=== PATIENT | female | born 1940 | race Caucasian/White ===

== ENCOUNTER → 2023-10-10 08:26 | Outpatient (REF) | payer OTHER, SELFPAY ==
[2023-10-10 10:13] LABS: % Basophils 0.6 % (0-2); % Eosinophils 16.7 % (0-6); % Immature Granulocytes 0.4 % (0-0.5); % Lymphocytes 17.7 % (20.5-51.1); % Monocytes 7.1 % (1.7-9.3); % Neutrophils 57.5 % (42.2-75.2); Absolute Eosinophils 1.2 10^3/uL (0-0.7); Absolute Lymphocytes 1.2 10^3/uL (1.2-3.4); Absolute Monocytes 0.5 10^3/uL (0.1-0.6); Hematocrit 33.6 % (37.0-47.0); Mean Corp Hgb Conc. 29.8 g/dL (33.0-37.0); Mean Corpuscular Hgb 23.9 pg (27.0-31.0); Mean Corpuscular Volume 80.2 fL (81.0-99.0); Mean Platelet Volume 10.3 fL (7.4-10.4); Nucleated Red Blood Cells % 0 %; Platelet Count 275 10^3/uL (130-400); Red Blood Cell Count 4.19 10^6/uL (4.20-5.40); Red Cell Dist. Width 18.1 % (11.5-14.5)
== END ==
LOC: REG 08:26
PROVIDERS: ATTENDING PHYSICIAN Internal Medicine
DX: J98.4 Other disorders of lung (principal)
CPT/HCPCS: 36415; 71046; 85025

== ENCOUNTER → 2023-11-10 12:15 | Outpatient (REF) | payer OTHER, SELFPAY ==
[2023-11-10 10:50] LABS: % Basophils 0.5 % (0-2); % Eosinophils 12.7 % (0-6); % Immature Granulocytes 0.2 % (0-0.5); % Lymphocytes 19.9 % (20.5-51.1); % Monocytes 8.3 % (1.7-9.3); % Neutrophils 58.4 % (42.2-75.2); Absolute Eosinophils 0.8 10^3/uL (0-0.7); Absolute Lymphocytes 1.3 10^3/uL (1.2-3.4); Absolute Monocytes 0.5 10^3/uL (0.1-0.6); Absolute Neutrophils 3.7 10^3/uL (1.4-6.5); Hemoglobin 10.5 g/dL (12.0-16.0); Mean Corp Hgb Conc. 30.9 g/dL (33.0-37.0); Mean Corpuscular Hgb 24.5 pg (27.0-31.0); Mean Corpuscular Volume 79.3 fL (81.0-99.0); Mean Platelet Volume 10.2 fL (7.4-10.4); Nucleated Red Blood Cells % 0 %; Platelet Count 243 10^3/uL (130-400); Red Blood Cell Count 4.29 10^6/uL (4.20-5.40); White Blood Cell Count 6.3 10^3/uL (4.8-10.8)
== END ==
LOC: OIDL 12:15
PROVIDERS: ATTENDING PHYSICIAN Internal Medicine Hematology & Oncology
DX: D50.0 Iron deficiency anemia secondary to blood loss (chronic) (principal)
CPT/HCPCS: 85025

== ENCOUNTER → 2023-12-04 13:19 | Outpatient (REF) | payer OTHER, SELFPAY ==
[2023-12-04 15:59] LABS: % Basophils 0.7 % (0-2); % Eosinophils 5.3 % (0-6); % Immature Granulocytes 0.3 % (0-0.5); % Lymphocytes 17.6 % (20.5-51.1); % Monocytes 9.1 % (1.7-9.3); Absolute Basophils 0.1 10^3/uL (0-0.2); Absolute Eosinophils 0.4 10^3/uL (0-0.7); Absolute Lymphocytes 1.4 10^3/uL (1.2-3.4); Absolute Monocytes 0.7 10^3/uL (0.1-0.6); Absolute Neutrophils 5.2 10^3/uL (1.4-6.5); Hematocrit 39.3 % (37.0-47.0); Hemoglobin 12.7 g/dL (12.0-16.0); Mean Corp Hgb Conc. 32.3 g/dL (33.0-37.0); Mean Corpuscular Hgb 26.8 pg (27.0-31.0); Mean Corpuscular Volume 82.9 fL (81.0-99.0); Mean Platelet Volume 10.9 fL (7.4-10.4); Nucleated Red Blood Cells % 0 %; Platelet Count 248 10^3/uL (130-400); Red Blood Cell Count 4.74 10^6/uL (4.20-5.40); Red Cell Dist. Width 23.9 % (11.5-14.5); White Blood Cell Count 7.7 10^3/uL (4.8-10.8)
[2023-12-04 16:03] LABS: Iron 80 ug/dl (37-170)
[2023-12-04 16:14] LABS: Percent Saturation 29 % (20-50); Total Iron Binding Capacity 270 ug/dl (265-497)
[2023-12-04 17:12] LABS: Folate 15.3 ng/ml (2.76-20); Vitamin B12 447 pg/ml (239-931)
[2023-12-04 17:22] LABS: Anisocytosis 1+; Normal RBC Morphology No
[2023-12-04 17:23] LABS: Macrocytosis 1+; Stomatocytes Slight
== END ==
LOC: HWLAB 13:19
PROVIDERS: ATTENDING PHYSICIAN Internal Medicine Hematology & Oncology; FAMILY PHYSICIAN Nurse Practitioner Adult Health
DX: D50.0 Iron deficiency anemia secondary to blood loss (chronic) (principal)
CPT/HCPCS: 36415; 82607; 82728; 82746; 83540; 83550; 85025

== ENCOUNTER 2023-12-11 09:00 | Outpatient (RCR) | payer OTHER, SELFPAY | END 2023-12-11 23:59 | disposition home or self-care (01) | LOC: PURB 09:00 | PROVIDERS: ATTENDING PHYSICIAN Internal Medicine; FAMILY PHYSICIAN Nurse Practitioner Adult Health | DX: J98.4 Other disorders of lung (principal) | CPT/HCPCS: G0237 ==

== ENCOUNTER 2024-01-15 10:45 | Outpatient (RCR) | payer OTHER, SELFPAY | END 2024-01-28 09:09 | disposition home or self-care (01) | LOC: PURB 10:45 | PROVIDERS: ATTENDING PHYSICIAN Internal Medicine; FAMILY PHYSICIAN Nurse Practitioner Adult Health | DX: J98.4 Other disorders of lung (principal) | CPT/HCPCS: G0239 ==

== ENCOUNTER 2024-01-17 21:08 | Observation (INO) | payer OTHER, SELFPAY ==
[2024-01-17 19:59] VITALS: BP 125/64
[2024-01-17 20:03] LABS: Glucose - Point of Care 122 mg/dl (70-99)
[2024-01-17 20:09] VITALS: BP 157/71
[2024-01-17 20:10] VITALS: BMI 29.2
--- NOTE | 2024-01-17 20:14 | ED.CVA ---
History of Present Illness
General
Chief Complaint: CVA/TIA Symptoms
Source: patient and spouse
Exam Limitations: none
Time Seen by Provider: 01/17/24 20:03
Nursing documentation reviewed up to this point in time: agreed with
Onset of Stroke Symptoms
Onset of symptoms known: Yes
Date of onset of symptoms: 01/17/24
Time of onset of symptoms: 19:00
History of Present Illness
History of Present Illness:
Patient with history of CAD, on 81 mg aspirin daily, presents to ED secondary to sudden onset of slurred speech and difficulty finding words, while speaking with her daughter around 7 PM. Denies headache. Denies dizziness. Denies blurred vision.
Denies loss of sensation or weakness. Denies difficulty with swallowing. Denies difficulty with ambulation. Denies previous history of similar symptoms. Denies recent illness. Denies recent change in medications or diet.
Past History
Past History
ED Past Medical History: Asthma, CAD, CHF, HTN, Hypercholesterolemia, Hypothyroidism and Other (Pleural effusion)
ED Past Surgical History: Orthopedic and Other (Left lung lobectomy)
Review of Systems
Review of Systems
Allergies reviewed?: Yes
All Other Systems: ROS reviewed and negative except as documented in HPI and ROS
Constitutional: Reports no symptoms
Respiratory: Reports no symptoms
Cardiac: Reports no symptoms
ABD/GI: Reports no symptoms
Musculoskeletal: Reports no symptoms
Skin: Reports no symptoms
Neurological: Reports other (Slurred speech, word finding difficulty)
Phy Exam
Physical Exam
Physical Exam:
Physical Exam
General: no apparent distress, not acutely ill. afebrile
Head: nc/at. eomi
Neck: supple. no meningeal signs.
Heart: s1/s2 regular rate and rhythm, no murmur. equal radial pulses.
Lungs: no acute respiratory distress. clear bilaterally
Abdomen: normal bowel sounds. not tender.
Neuro: alert and oriented. no focal sensory/motor deficit. normal speech.
Skin: no rash
Psychiatric: well kept. interactive and cooperative
Extremities: no edema. no calf tenderness.
Course
Orders/Labs/Results
Orders:
Orders
01/17/24 20:05
Electrocardiogram (*1) Urgent
Reason for Study: Other
Other Reason for Exam: Possible Stroke
Cardiac Monitoring- Treatment ONCE
EKG- Treatment ONCE
IV Insert/Care/Rem.- Treatment PRN
Vital Signs As Directed
Frequency: Other
Weight As Directed
Frequency: Once
Comment: ZERO STRETCHER SCALE FOR ACCURATE WEIGHT
O2 Therapy [RESP] Urgent
Titrate/Wean O2 to maintain O2 sat greater than (%): 93
Special Instructions: MAINTAIN CONTINUOUS O2 SATS > OR = 93%
01/17/24 20:09
CT Head W/o Cont STROKE ALERT Urgent
Comment:
Reason For Exam: slurred speech w expressive aphasia
01/17/24 20:11
Complete Blood Count/With Diff Urgent
Comprehensive Metabolic Panel Urgent
PTT Urgent
Prothrombin Time Urgent
Troponin I Urgent
01/17/24 20:36
Aspirin Chewable [Low Strength Aspirin] 243 mg PO NOW STA
Clopidogrel Bisulfate [Plavix] 300 mg PO NOW STA
01/17/24 20:[address] Non Medication Order As Directed
Physician Order: please complete med rec. thanks
Above order entered?: Yes
01/17/24 21:00
Admit/Transfer Patient As Directed
Co-Sign Provider:
Level of Care: Observation services
Assign to:: Telemetry
Physician / Group: stalin
Diagnosis: CVA
Reason for Telemetry: CVA/TIA
Date to Stop Telemetry: 01/20/24
Time to Stop Telemetry: 11:00
0.9% Sodium Chloride 500 ml [Nss] 500 ml IV 999 mls/hr
PRN Pain Medication Management As Directed
May give lesser potent ordered pain med per pt: Yes
preference::
Protocol:: Medication orders for pain may be administered in a
manner that supports deferring to patient preference
when the pt is:
- Requesting an ordered lesser potent pain medication.
Least to most potent pain medications are defined
as: acetaminophen < NSAID < tramadol < opioids
(morphine, oxycodone, hydromorphone).
- Requesting a lesser dose of the same medication IF
ORDERED.
- Requesting a less intrusive route of administration
if both routes are prescribed by the provider (PO <
IV).
01/17/24 21:01
Code Status As Directed
Resuscitation Status: Do not resuscitate
Reached after discussion with pt or family/Healthcare POA: Yes
DNR Bracelet Application ONCE
01/17/24 21:49
Acetaminophen [Tylenol/Feverall] 650 mg RECTAL Q4HPRN PRN
Acetaminophen [Tylenol] 650 mg PO Q4HPRN PRN
01/17/24 21:49
Case Management Consult ONCE
Case Management Consult: Discharge Planning
Comment: stroke/tia
DIETARY CONSULT Routine
Reason for Consult: stroke/TIA
NEUROLOGY CONSULT Urgent
Consulting Provider: Steph Cobb
Was physician already notified: Yes
Blanket Winder Operator Urgent
MA [place] Wo Routine
Comment:
Reason For Exam: stroke/TIA
Recent pill cam endoscopy?: No
MA Neck With Contrast Routine
Comment:
Reason For Exam: stroke/TIA
Recent pill cam endoscopy?: No
MR Brain Without Contrast Routine
Comment:
Reason For Exam: stroke/TIA
Recent pill cam endoscopy?: No
Activity As Directed
Activity Level: As Tolerated
NIH Stroke Scale As Directed
Directions: Per protocol
Comment: every shift and with any change in condition or mental status
Neurological Checks As Directed
Frequency: q4h
Additional Instructions:: q4h x 24h upon admission to the floor, then qshift & with any change in condition
and mental status
Patient Education As Directed
Type: Stroke education packet
Comment: provide to patient and family
Pneumatic Compression Sleeves As Directed
Type: Thigh high
Swallow Screening CVA/TIA ONLY As Directed
Comment: NPO until swallowing screening completed
If patient FAILS swallow screening:: NPO, Speech Therapy consult, Aspiration Precautions
If patient PASSES swallow screening, diet:: Cholesterol Lowering
Vital Signs As Directed
Frequency: Per unit guidelines
Ot Eval And Treat Routine
Pt Eval And Treat Routine
Activity Level: As Tolerated
Speech Therapy Eval & Treat Routine
DX Deep Vein Thrombosis Video Routine
01/17/24 22:00
Amlodipine [Norvasc] 5 mg PO HS
Famotidine [Pepcid] 40 mg PO HS
Flush (0.9% Sodium Chloride) [Flush (Nss)] See Dose Instructions IV PER PROTOCOL
Montelukast Sodium [Singulair] 10 mg PO HS
01/17/24 22:08
Glycohemoglobin (HgbA1c) Routine
01/18/24 06:00
Basic Metabolic Panel IN AM
Cardiovascular Evaluation IN AM
Complete Blood Count/No Diff IN AM
Levothyroxine [Synthroid] 25 mcg PO DAILY @ 0600
01/18/24 08:00
Aspirin Chewable [Low Strength Aspirin] 81 mg PO DAILY
Carvedilol [Coreg] 25 mg PO BID
Clopidogrel Bisulfate [Plavix] 75 mg PO DAILY
Fluticasone/Salmeterol 230/21 [Advair Hfa 230/21 Mcg Inhaler] 2 puff INH R BID
Pantoprazole [Protonix] 40 mg PO BID
01/18/24 18:00
Atorvastatin [Lipitor] 80 mg PO QPM
01/20/24 11:00
DC Protocol for Telemetry ONCE
Abnormal Lab Results
01/17/24 01/17/24
20:02 20:11
RDW 21.9 H %
(11.5-14.5)
Absolute Eos (auto) 0.8 H 10^3/uL
(0-0.7)
Eosinophils % 12.7 H %
(0-6)
BUN 20 H mg/dl
(7-17)
Creatinine 1.1 H mg/dL
(0.6-1.0)
Glucose 118 H mg/dl
(70-99)
Calcium 10.4 H mg/dl
(8.4-10.2)
Total Protein 6.2 L g/dl
(6.3-8.2)
POC Glucose 122 H mg/dl
(70-99)
01/17/24 20:11
01/17/24 20:11
Vital Signs
Initial and Last Documented VS:
Initial Vital Signs
Temp Pulse Resp BP Pulse Ox
98.1 F 59 14 125/64 98
01/17/24 19:59 01/17/24 19:59 01/17/24 19:59 01/17/24 19:59 01/17/24 19:59
Last Documented Vital Signs
Temp Pulse Resp BP Pulse Ox
97.5 F 57 18 138/60 100
01/17/24 23:43 01/17/24 23:43 01/17/24 23:43 01/17/24 23:43 01/17/24 23:43
MDM/Problems Addressed
MDM/Problems Addressed:
Stroke alert activated upon arrival. CT head: No acute findings. Patient is not a candidate for tenecteplase, secondary to resolving symptoms along with low NIH score. Discussed with on-call neurology, Dr. Cobb. Will admit for further
evaluation and treatment. Will start aspirin and Plavix tonight.
*EKG
Interpreted by ED Provider?: Yes
EKG Intrepretation Date: 01/17/24
Interpretation: normal
Heart Rate: 62
Rate: normal
Rhythm: sinus
[place]: normal axis
Interval: normal interval
QRS Pattern: normal QRS
*Critical Care Note
Total Time (30-74mins, 75-104mins- exclusive of procedures): Not Applicable
ED Attending Note
-
Portions of this chart may have been created with voice recognition software.� Occasional wrong word or��sound alike� substitutions may have occurred due to the inherent limitations of voice recognition software.
Discharge Plan
Departure
Patient Disposition: Admit
Date of Disposition: 01/17/24
Time of Disposition: 20:40
Admit to: Telemetry
Presentation/result/management discussed w/ accepting MD/DO: Hospitalist
Discharge Problem:
TIA (transient ischemic attack)
Interventions
Interventions:
*Risk Screen - Suicide Last Done: 01/17/24 19:59
*General Assessment Last Done: 01/17/24 19:59
*Neglect/Abuse Screening Last Done: 01/17/24 19:59
ED- Fall Risk Assessment Last Done: 01/17/24 20:15
*ED COVID-19 Vaccine History Last Done: 01/17/24 21:38
*Nursing Disposition Last Done: 01/17/24 21:38
ED- Cardiac Assessment Last Done: 01/17/24 20:15
ED- Neurological Assessment Last Done: 01/17/24 20:04
ED- Pulmonary Assessment Last Done: 01/17/24 20:15
ED Swallowing Screen Last Done: 01/17/24 21:04
Discharge Date and Time
Discharge Date/Time: 01/17/24 21:39
[2024-01-17 20:18] LABS: % Basophils 0.8 % (0-2); % Eosinophils 12.7 % (0-6); % Immature Granulocytes 0.3 % (0-0.5); % Lymphocytes 26.5 % (20.5-51.1); % Monocytes 8.6 % (1.7-9.3); % Neutrophils 51.1 % (42.2-75.2); Absolute Basophils 0.1 10^3/uL (0-0.2); Absolute Eosinophils 0.8 10^3/uL (0-0.7); Absolute Lymphocytes 1.8 10^3/uL (1.2-3.4); Absolute Monocytes 0.6 10^3/uL (0.1-0.6); Absolute Neutrophils 3.4 10^3/uL (1.4-6.5); Mean Corp Hgb Conc. 34.2 g/dL (33.0-37.0); Mean Corpuscular Hgb 28.3 pg (27.0-31.0); Mean Corpuscular Volume 82.8 fL (81.0-99.0); Mean Platelet Volume 10.3 fL (7.4-10.4); Nucleated Red Blood Cells % 0 %; Platelet Count 205 10^3/uL (130-400); Red Blood Cell Count 4.59 10^6/uL (4.20-5.40); Red Cell Dist. Width 21.9 % (11.5-14.5); White Blood Cell Count 6.6 10^3/uL (4.8-10.8)
[2024-01-17 20:27] LABS: INR 0.97; PT 12.7 Sec (11.4-14.6)
[2024-01-17 20:28] LABS: APTT 28.9 Sec (23.4-35.0)
--- NOTE | 2024-01-17 20:41 | HPS.HSE ---
Family Physician
-
Family Physician: Tyler Godinez
Chief Complaint
-
slurred speech
History of Present Illness
83-year-old with past medical history for pleural effusion, coronary artery disease, asthma, congestive heart failure, hypertension, hyperlipidemia, hypothyroidism presented with sudden onset of slurred speech, difficulty finding words, could not
process thought and she was not making sense at all. This happened while she was having dinner with her children. Patient was not participating in the conversation. Patient denies any headache, dizziness, chills, chest pain, shortness of breath.
Patient denies any abdominal pain, nausea,. Patient denies any dysuria hematuria.
CT head with no acute findings
patient received aspirin and Plavix in the ER. Admitted for further management
Medical History
Past Medical History
Past Medical History: Reports Other
Additional Past Medical History:
Coronary artery disease
Congestive heart failure
Hypertension
Hyperlipidemia
Hypothyroidism
Pleural effusion
Past Surgical History: Reports Other
Additional Past Surgical History:
Left upper lobe lobectomy
Social History
Tobacco: Former Smoker
Alcohol: Occasional
Drug: None
Personal:
Living: With Family
Family History
Family History: Not pertinent
Allergies / Home Medications
Allergies reflects when Allergies were last updated in [employer]
Home Medications with original date entered in [employer].
Allergy/Medication List:
Allergies
Allergy/AdvReac Type Severity Reaction Status Date / Time
adhesive Allergy Redness, Verified 03/24/23 12:43
itching
for days
post use
adhesive tape Allergy Itching Verified 03/24/23 12:43
goyal Allergy wheezing Verified 03/24/23 12:43
Iodinated Contrast Media Allergy Anaphylaxis Verified 03/24/23 12:43
Home Medications
Bifidobacterium infantis 4 mg capsule (Align) 4 mg PO HS Supplement 06/03/22
albuterol sulfate 90 mcg/actuation aerosol inhaler (Ventolin HFA) 2 puff inhalation R Q6HPRN PRN wheezing 06/03/22
amlodipine 5 mg tablet (Norvasc) 5 mg PO HS Blood pressure 06/03/22
aspirin 81 mg tablet,delayed release 81 mg PO DAILY Blood clot prevention/tx 06/03/22
carvedilol 25 mg tablet 25 mg PO BID Heart disease/condition 06/03/22
famotidine 40 mg tablet 40 mg PO HS Gastrointestinal issue 06/03/22
levothyroxine 25 mcg tablet (Levoxyl) 25 mcg PO DAILY Thyroid 06/03/22
montelukast 10 mg tablet (Singulair) 10 mg PO HS Lung/breathing issues 06/03/22
fluticasone 500 mcg-salmeterol 50 mcg/dose blistr powdr for inhalation (Wixela Inhub) 1 inh inhalation R BID Lung/breathing issues 07/31/22
lansoprazole 30 mg capsule,delayed release (Prevacid) 30 mg PO BID Gastrointestinal issue 07/31/22
Medical Marijuana 10 drp PO HSPRN PRN sleep 11/12/22
Alpha Betic 1 tab PO DAILY Supplement 03/24/23
cetirizine 10 mg tablet (Zyrtec) 10 mg PO HS Allergies 03/24/23
coenzyme Q10 100 mg capsule (CoQ-10) 100 mg PO BID Supplement 03/24/23
denosumab 60 mg/mL subcutaneous syringe (Prolia) 60 mg SC [id number] OSTEOPOROSIS 03/24/23
furosemide 20 mg tablet 20 mg PO DAILY Fluid Retention/Swelling 03/24/23
irbesartan 300 mg tablet 300 mg PO DAILY Blood Pressure 03/24/23
censhvnq-fhwbahrjk-fcxccllp 3.5 mg/mL-10,000 unit/mL-0.1% eye drops 4 drp BOTH EYES TID Eye Condition 03/24/23
pravastatin 80 mg tablet 80 mg PO Q48H High Cholesterol 03/24/23
acetaminophen 325 mg tablet 650 mg (2 x 325 mg) PO Q4HPRN PRN temp >100.4 F and/or mild pain #0 tabs 03/26/23
cephalexin 500 mg capsule 500 mg PO QID pneumonia #40 caps 03/26/23
prednisone 10 mg tablet See Rx Instructions .Route .COMPLEX Lung/breathing issues #30 tabs 03/26/23
Review of Systems
-
Constitutional: Reports No Symptoms
EENT: Reports No Symptoms
Respiratory: Reports No Symptoms
Cardiac: Reports No Symptoms
Abdomen/GI: Reports No Symptoms
: Reports No Symptoms
Musculoskeletal: Reports No Symptoms
Skin: Reports No Symptoms
Neurological: Reports Other (slurred speech, finding words difficulty)
Endocrine: Reports No Symptoms
Hematologic/Lymphatic: Reports No Symptoms
Psych: Reports No Symptoms
Physical Exam
Vital Signs
Vital Signs
Temp Pulse Resp BP Pulse Ox
98.1 F 67 17 157/71 99
01/17/24 19:59 01/17/24 20:09 01/17/24 20:09 01/17/24 20:09 01/17/24 20:15
Physical Exam
General: Well Developed, Well Nourished and No Apparent Distress
HEENT: NormoCephalic, Moist mucous membranes and Atraumatic
Respiratory: Clear
Cardiac: S1/S2 and Regular Rhythm; No Murmur or Rub
GI: Soft, Non Tender, Non Distended and Normal Bowel Sounds; No Organomegaly
Rectal: Deferred by Provider
Musculoskeletal: No Clubbing, No Cyanosis and No Edema
Skin: No Rash
Neuro: AO x 3 and Nonfocal/grossly intact
Psych: Calm
Laboratory Results
-
01/17/24 20:11
Laboratory Results
PT 12.7 Sec (11.4-14.6) 01/17/24 20:11
INR 0.97 01/17/24 20:11
APTT 28.9 Sec (23.4-35.0) 01/17/24 20:11
Data Reviewed
-
CT Scan: Report Reviewed by me
Lab Data: Labs Reviewed by me
Impression/Plan
-
# Slurred speech/word finding difficulty rule out TIA/CVA
-CT head with no acute findings
-Obtain MRI/MRI
-Continue aspirin and Plavix
-Obtain A1c, lipid profile
-Statin continued
-PT/OT consult
-Neurology consulted
# Acute kidney injury likely dehydration
-Creatinine 1.1, BUN 20
-Normal saline 500c x1 bag
-BMP in a.m.
#Coronary Artery Disease s/p Stent--Continue aspirin
#Asthma-not in acute exacerbation-Continue Wixela and Singulair
#Essential Hypertension-Continue Norvasc, Coreg-hold irbesartan
#hxt of chf-not in acute exacerbation
#Hypothyroidism-Continue levothyroxine
#GERD-Continue Prevacid and Pepcid
#DVT proph: scd
#Code Status: DNR
[2024-01-17 20:42] LABS: ALT (SGPT) 20 U/L (0-35); AST (SGOT) 31 U/L (14-36); Alkaline Phosphatase 93 U/L (38-126); Blood Urea Nitrogen 20 mg/dl (7-17); Calcium 10.4 mg/dl (8.4-10.2); Carbon Dioxide 27 mmol/L (22-30); Chloride 106 mmol/L (98-107); Estimated Creatinine Clearance 37 ml/min; Glucose 118 mg/dl (70-99); Potassium 4.5 mmol/L (3.5-5.1); Sodium 140 mmol/L (135-145); Total Bilirubin 0.4 mg/dl (0.2-1.3); Total Protein 6.2 g/dl (6.3-8.2); eGFR 50.48
--- NOTE | 2024-01-17 20:48 | W.PN.UPDATE ---
Update Note
Progress Note Update
Is an 83-year-old female with a past medical history of hypertension, hyperlipidemia, CAD, hypothyroid and GERD presenting to the emergency department with episode of slurred speech.
Patient apparently suddenly developed word finding difficulties and slurred speech around 7 PM today. Per spouse she had one word sentences and dysarthria. There was no facial droop. No numbness tingling or weakness. With some mild confusion.
She denies headache, dizziness, lightheadedness, nausea vomiting, palpitations or chest pain. Denies prior such episodes.
On arrival in the emergency department symptoms appears to be resolved but fluency is not back to baseline entirely. She was hypertensive to the 150s over 71, afebrile at 98.1 with a normal pulse. ECG shows normal sinus rhythm rate 62, without any
acute ST or T wave changes. CT of the head shows no acute stroke. CBC was completely within normal limits. Chemistries also completely within normal limits with a BUN of 20 and a creatinine of 1.1.
Assessment and plan
TIA - Currently NIHSS equals 0. ABCD2 = 4 with moderate risk for impending stroke. Appreciate early neuro input.
- continue aspirin 81
- plavix 300 x 1, then 75
- mri in am
- permissive hypertension for now
- continue statin
- check aspirin profile and lipid panel
- neurology consultation
- pt/ot
HTN
- continue home meds, allow permissive hypertension
CKD - Cr 1.1, baseline is 0.8 - 1. No evidence of ANNABELLE. Possibly mild dehydration
- 500 ml bolus x 1
DVT PPX - lovenox sq
Full code
[2024-01-17 21:00] VITALS: BP 132/57
[2024-01-17 21:00] LABS: Troponin I < 0.012 ng/ml
[2024-01-17] MEDS: PLAVIX 300 MG PO (21:05)
[2024-01-17] MEDS: LOW STRENGTH ASPIRIN 243 MG PO (21:05)
[2024-01-17] MEDS: NSS 500 IV (21:05)
[2024-01-17 21:50] VITALS: BP 171/74; BMI 29.1
[2024-01-17] MEDS: SINGULAIR 10 MG PO (22:52)
[2024-01-17] MEDS: NORVASC 5 MG PO (22:52)
[2024-01-17] MEDS: PEPCID 40 MG PO (22:52)
--- NOTE | 2024-01-17 23:36 | PTCARENOTE ---
Receive pt from ER. Pt alert oriented X3, calm and pleasant. Pt assisted X1 to her bed, steady on her feet. Pt oriented to the room, call reyes within reach, spouse at the bedside. Pt NIH=0. Pt states that aphasia and dysarthria are resolved since
she got to ER, but she states that her speech is markedly slow, which is new for her. Pt's spouse also confirms that pt's speech is abnormally slow. AC=293/74, HR=63, RR=20, T=97.7, SpO2=98% on RA. Pt passed the swallow test with no issues. Stroke
packet given and discussed with the pt. Pt states that she feels 'tired' and wants to 'sleep'. Advise the pt to call if she notes any change in her condition. Pt is sleeping comfortably in her bed at this time.
[2024-01-17 23:43] VITALS: BP 138/60
[2024-01-18] VITALS (7 sets, daily range): BP systolic 124–161; BP diastolic 55–75; PULSE 60
[2024-01-18] MEDS: TYLENOL 650 MG PO ×3 (02:50→21:15)
--- NOTE | 2024-01-18 02:57 | PTCARENOTE ---
At 0155, pt called to report numbness in the right leg and decreased sensation in the right arm and leg. Pt NIH=1 (for mild decreased sensation). In couple minutes, pt reports that the numbness in the right leg is improved, but the sensation is
still diminished in the right arm and leg. HANAN Vasquez made aware, ordered a stat CT. After coming back from CT Scan, the pt reports headache (3-10/07). Pt states that headache is not unusual for her and that she gets headache 'on and off'.
Tylenol 6580mg given for headache. AT=896/63, HR=54, SpO2=97-98% on RA. Pt is resting in her bed at tjis time, trying to go back to sleep. Will keep monitoring the pt.
[2024-01-18] MEDS: SYNTHROID 25 MCG PO (05:11)
[2024-01-18] MEDS: ADVAIR HFA 230/21 MCG INHALER 2 PUFF INH ×2 (07:46→19:40)
--- NOTE | 2024-01-18 08:17 | W.PN.HOSP.TC ---
Today's Communication/Plan
-
see bold
Assessment / Plan
Assessment / Plan
#Expressive aphasia
Head CT negative, brain MRI negative
Suspect transient ischemic attack
LDL 125, recommend changing pravastatin to DANIELLE atorvastatin 40 mg at bedtime
Patient is currently on aspirin 81 mg daily prior to admission
Neuro rec EEG and echo
#Renal insufficiency
Resolved with IV fluids
#Coronary Artery Disease s/p Stent--Continue aspirin
#Asthma-not in acute exacerbation-Continue Wixela and Singulair
#Essential Hypertension-Continue Norvasc, irbesartan. Decrease coreg due to bradycardia
#hxt of chf-not in acute exacerbation
#Hypothyroidism-Continue levothyroxine
#GERD-Continue Prevacid and Pepcid
DVT prophylaxis�SCDs
DNR
Total time spent to see the patient on the floor, examine the patient, review data and lab results, discuss treatment plan with patient, nursing staff around 38 minutes.
Physical Exam
General: Frail, elderly, no acute distress
HEENT: Normocephalic, Atraumatic, EOMI, MMM
Respiratory: Clear to Auscultation bilaterally
Cardiac: Normal S1/S2, Regular Rate and Rhythm
GI: Soft, Nontender, Nondistended, Normal Bowel Sounds
Extremities: No Clubbing, Cyanosis, or Edema
Neuro: Nonfocal/Grossly Intact
Psych: Calm, Cooperative
Derm: No Visible lesions
Anticipated Discharge: Within 24 hours
Subjective/Interval History
-
Date of Service: January 18, 2024
Patient speech is mostly back to normal. She does report some minimal expressive aphasia. No fever, no vomiting.
Objective Data
-
Labs:
Laboratory Results
01/17/24 01/18/24
20:11 06:36
WBC 6.6 Pending
Hgb 13.0 Pending
Hct 38.0 Pending
Plt Count 205 Pending
PT 12.7
INR 0.97
APTT 28.9
Sodium 140 Pending
Potassium 4.5 Pending
Chloride 106 Pending
Carbon Dioxide 27 Pending
BUN 20 H Pending
Creatinine 1.1 H Pending
Glucose 118 H Pending
Calcium 10.4 H Pending
Total Bilirubin 0.4
AST 31
ALT 20
Alkaline Phosphatase 93
Vital Signs:
Vital Signs
Temp Pulse Resp BP Pulse Ox
97.5 F 57 16 151/63 98
01/18/24 03:25 01/18/24 07:52 01/18/24 07:52 01/18/24 03:25 01/18/24 07:52
[2024-01-18 08:19] LABS: Hematocrit 38.7 % (37.0-47.0); Hemoglobin 12.8 g/dL (12.0-16.0); Mean Corp Hgb Conc. 33.1 g/dL (33.0-37.0); Mean Corpuscular Hgb 28.3 pg (27.0-31.0); Mean Corpuscular Volume 85.4 fL (81.0-99.0); Platelet Count 176 10^3/uL (130-400); Red Blood Cell Count 4.53 10^6/uL (4.20-5.40); Red Cell Dist. Width 21.4 % (11.5-14.5); White Blood Cell Count 4.7 10^3/uL (4.8-10.8)
[2024-01-18 08:40] LABS: Blood Urea Nitrogen 19 mg/dl (7-17); Calcium 10.1 mg/dl (8.4-10.2); Carbon Dioxide 27 mmol/L (22-30); Chloride 108 mmol/L (98-107); Estimated Creatinine Clearance 46 ml/min; Glucose 82 mg/dl (70-99); HDL Cholesterol 54 mg/dl; LDL Cholesterol, Calculated 125 mg/dl; Potassium 3.8 mmol/L (3.5-5.1); Sodium 140 mmol/L (135-145); Total Cholesterol 230 mg/dl (50-199); Triglyceride 256 mg/dl (10-149); Very Low Density Lipoprotein 51 mg/dl (0-30); eGFR > 60.00
[2024-01-18] MEDS: FARXIGA 10 MG PO (09:04)
[2024-01-18] MEDS: LOW STRENGTH ASPIRIN 81 MG PO (09:04)
[2024-01-18] MEDS: PROTONIX 40 MG PO ×2 (09:05→20:34)
[2024-01-18] MEDS: PLAVIX 75 MG PO (09:05)
[2024-01-18] MEDS: FIORICET 1 TAB PO (11:55)
[2024-01-18] MEDS: COMPAZINE 5 MG PO (11:56)
--- NOTE | 2024-01-18 12:47 | CON.NEURO4 ---
Addendum entered and electronically signed by Steph Cobb, DO 01/18/24 14:20:
Has been switched from pravastatin to atorvastatin 40mg.
Original Note:
Consultation - Neurology 4
-
CONSULTING PHYSICIAN: Jordyn
REFERRING PHYSICIAN: ER
DICTATED BY: Jordyn
DATE/TIME OF REQUEST: 01/17/24 in the evening
DATE/TIME OF CONSULTATION: 01/18/24 at 1300
Reason for Consultation: tia
History of Present Illness:
83-year-old female with a past medical history of coronary artery disease, CHF, hypertension, hyperlipidemia presents for evaluation for sudden onset of dysarthria, difficulty with word finding and difficulty making sense when attempting to speak.
She was having dinner around 7pm yesterday with her children when this occurred. She suddenly sat participating in conversation and could only speak in one word sentences. She also exhibited mild confusion. HCT was negative for any acute stroke.
She was loaded with aspirin and Plavix in the ER. NIHSS was 0.
Reports that yesterday evening she experienced jerking movements in her RLE centered around her R knee that have never occurred before. This was after resolution of her speech issues.
Already on ASA 81mg daily and pravastatin 80mg every other day--was having muscle spasms with daily dosing of the latter
Past Medical History:
Coronary artery disease
Congestive heart failure
Hypertension
Hyperlipidemia
Hypothyroidism
Pleural effusion
Past Surgical History:
Left upper lobe lobectomy
Social History
Tobacco: Former Smoker
Alcohol: Occasional
Drug: None
Personal:
Living: With Family
Family History: Not pertinent
Allergies
adhesive Allergy (Verified 03/24/23 12:43)
Redness, itching for days post use
adhesive tape Allergy (Verified 03/24/23 12:43)
Itching
goyal Allergy (Verified 03/24/23 12:43)
wheezing
Iodinated Contrast Media Allergy (Verified 03/24/23 12:43)
Anaphylaxis
Home Medications
�Medication �Instructions �Recorded
Bifidobacterium infantis 4 mg 4 mg PO HS Supplement 06/03/22
capsule (Align)
amlodipine 5 mg tablet (Norvasc) 5 mg PO HS Blood pressure 06/03/22
aspirin 81 mg tablet,delayed 81 mg PO DAILY Blood clot 06/03/22
release prevention/tx
carvedilol 25 mg tablet 25 mg PO BID Heart 06/03/22
disease/condition
famotidine 40 mg tablet 40 mg PO HS Gastrointestinal issue 06/03/22
levothyroxine 25 mcg tablet 25 mcg PO DAILY Thyroid 06/03/22
(Levoxyl)
montelukast 10 mg tablet 10 mg PO HS Lung/breathing issues 06/03/22
(Singulair)
fluticasone 500 mcg-salmeterol 50 1 inh inhalation R BID 07/31/22
mcg/dose blistr powdr for Lung/breathing issues
inhalation (Wixela Inhub)
lansoprazole 30 mg capsule,delayed 30 mg PO BID Gastrointestinal issue 07/31/22
release (Prevacid)
Medical Marijuana 10 drp PO HSPRN PRN sleep 11/12/22
Alpha Betic 1 tab PO DAILY Supplement 03/24/23
cetirizine 10 mg tablet (Zyrtec) 10 mg PO HS Allergies 03/24/23
coenzyme Q10 100 mg capsule 100 mg PO BID Supplement 03/24/23
(CoQ-10)
denosumab 60 mg/mL subcutaneous 60 mg SC [id number] OSTEOPOROSIS 03/24/23
syringe (Prolia)
furosemide 20 mg tablet 10 mg PO DAILY Fluid 03/24/23
Retention/Swelling
irbesartan 300 mg tablet 300 mg PO DAILY Blood Pressure 03/24/23
pravastatin 80 mg tablet 80 mg PO Q48H High Cholesterol 03/24/23
acetaminophen 325 mg tablet 650 mg (2 x 325 mg) PO Q4HPRN PRN 03/26/23
temp >100.4 F and/or mild pain #0
tabs
dapagliflozin propanediol 10 mg 10 mg PO DAILY 01/17/24
tablet (Farxiga)
magnesium glycinate 100 mg (as 500 mg PO DAILY 01/17/24
glycinate) tablet
Review of Symptoms:
Patient denies any fever, headache, chest pain, shortness of breath, GI or symptoms.
�Per the HPI.�All systems are reviewed negative except above.
Vital Signs
Temp Pulse Resp BP Pulse Ox
97.5 F 56 16 152/75 99
01/18/24 12:13 01/18/24 12:13 01/18/24 12:13 01/18/24 12:13 01/18/24 12:13
Lab Results
01/18/24 06:36
01/18/24 06:36
PT 12.7 Sec (11.4-14.6) 01/17/24 20:11
INR 0.97 01/17/24 20:11
APTT 28.9 Sec (23.4-35.0) 01/17/24 20:11
Sodium 140 mmol/L (135-145) 01/18/24 06:36
Potassium 3.8 mmol/L (3.5-5.1) 01/18/24 06:36
BUN 19 mg/dl (7-17) H 01/18/24 06:36
Glucose 82 mg/dl (70-99) 01/18/24 06:36
Calcium 10.1 mg/dl (8.4-10.2) 01/18/24 06:36
LDL Cholesterol, Calc 125 mg/dl 01/18/24 06:36
Physical Exam:
The patient is afebrile, heart sounds S1 and S2 are regular, and chest is clear to auscultation bilaterally.
NIH Stroke Scale (if applicable):
I performed the NIH stroke scale on the patient on (date & time). The patient scored ( ) points on the NIH stroke scale assessment, which were assigned as follows:
Neurologic Examination:
The patient is awake, alert and oriented x 3. (He/She) is able to follow commands and answer questions appropriately. There is no aphasia or dysarthria. On cranial nerve assessment, pupils are 3 mm bilateral, round and reactive to light and
accommodation. Visual alexander are full. Extraocular movements are intact. Facial sensations are intact and bilaterally symmetrical, there is no facial asymmetry. Hearing is intact bilaterally to normal conversation volume. Tongue palate and uvula
are midline. Sternocleidomastoid strengths are full bilaterally. Motor strengths are 5/5 bilateral upper and lower extremities on medical research [place] scale. There is no drift or involuntary movement noted. Deep tendon reflexes are 2+ bilateral
upper and lower extremities and Babinski is absent bilaterally. Sensations of pain, touch, temperature and vibration are intact and bilaterally symmetrical. There was no extinction noted on double simultaneous stimulation. Coordination is intact by
finger to nose bilaterally.
Neuro Imaging:
MRI brain without contrast: normal
MRA head:
'There are no acute abnormalities
The A1 segment of the right anterior cerebral artery is absent which may be seen as a normal variant
Remainder of the right anterior cerebral artery fills via patent anterior communicating artery'
MRA neck:normal
Impression:
DONALD ROSE is a 83 year old F who has presented to the hospital after an episode of dysarthria and aphasia with confusion that then resolved. Her presentation is concerning for a left hemispheric TIA, likely atherothrombotic given her past
medical history. However, vessel imaging was unremarkable, so a cardioembolic source is possible. Seizure is also a possibility.
Patient has the following risk factors for their symptoms: cad, htn, hld, age
IV Tenecteplase/IAT candidacy: not a candidate d/t NIHSS of 0
Recommendations:
-reviewed imaging, see above
-BP goal is normotension.
-continue dapt x 21 days, then d/c Plavix and continue ASA 81mg daily.
- Check hemoglobin A1C. Goal is normoglycemia.
- LDL is elevated at 125. Goal LDL after stroke is <70. On pravastatin as an outpatient every other day; if issues with tolerating statins, would discuss further as an outpatient with cardiology.
- Check an echocardiogram. Would benefit from outpatient cardiac monitoring for afib. Follows with Dr. Blakely.
-PT/OT/ST evaluations
- DVT prophylaxis
-continue neurochecks
-check EEG given R leg jerking, possibility of L hemispheric seizure focus given speech involvement; wants to stay in the hospital to get this done
-needs outpatient f/u with neurology in 2-3 mos.
Discussed patient care with: patient, hospitalist
--- NOTE | 2024-01-18 14:17 | PTOTSP ---
Speech therapy
Presentation: Patient's cognition appeared to be WNL. During conversation with WILL CALL ORDER CLERK, patient demonstrated intermittent word-finding difficulty which did not impact her ability to communicate her wants/ needs. Patient stated her speech has improved
greatly since admission and is close to baseline.
Swallowing Function: WILL CALL ORDER CLERK observed patient with several bites of cracker and straw sips of thin liquids in which patient appeared to tolerate as she did not exhibit any overt clinical s/sxo of aspiration or difficulty with mastication/ manipulation.
Patient denied dysphagia complaints.
Per RN, patient tolerated medications whole with thin liquids.
Recommendations:
1) Continuation of regular consistency solids and thin liquids
2) Standard aspiration precautions
3) Medications whole with thin liquids
4) Consider speech language evaluation if clinically indicated
Plan: WILL CALL ORDER CLERK will continue to follow; pending hospitalization.
--- NOTE | 2024-01-18 14:30 | CM ---
Addendum entered by Virginie Ayala 01/18/24 15:44:
patient's signed imm letter.
Original Note:
met with patient and at bedside.patient lives with in in law suite in daughter's home with 3 josue,her bed and bath is on first level,she amb i ,is totally I with adl's.her pcp is dr owusu and she uses [facility] in
[place].she has never had a vn or been to ip rehab.
past medical history:asthma,cad,chf,htn,pleural effusion,left lung lobectomy.
patient is adm with dysarthria.ct scan neg,mri pending,seen by neuro who feels patient had a tia vs seizure.she was seen by physical therapy who rec home.plan home with no hc and possible op speech therapy.
[2024-01-18 15:26] LABS: Glycohemoglobin (HgbA1c) 5.6 % (4.0-5.6)
[2024-01-18] MEDS: LIPITOR 40 MG PO (17:08)
[2024-01-18] MEDS: LOVENOX 40 MG SC (17:09)
[2024-01-18] MEDS: COREG 6.25 MG PO (20:33)
[2024-01-18] MEDS: PEPCID 40 MG PO (21:08)
[2024-01-18] MEDS: SINGULAIR 10 MG PO (21:08)
[2024-01-18] MEDS: ZYRTEC 10 MG PO (21:09)
[2024-01-18] MEDS: NORVASC PO (21:22)
[2024-01-19 03:08] VITALS: BP 129/58
[2024-01-19] MEDS: SYNTHROID 25 MCG PO (05:45)
[2024-01-19 07:35] VITALS: BP 148/67
[2024-01-19] MEDS: ADVAIR HFA 230/21 MCG INHALER 2 PUFF INH (07:53)
--- NOTE | 2024-01-19 08:20 | W.PN.HOSP.TC ---
Today's Communication/Plan
-
Echo
EEG
Discharge
Assessment / Plan
Assessment / Plan
Gen-AAOx3, NAD
HEENT-NC, AT, anicteric, clear oral mm
Neck-supple
CV-reg, no M, +S1/S2
Lungs-clear B/L
Abd-soft, NT, ND
Ext-no edema
Musculoskeletal-no cyanosis, clubbing
Skin-warm and dry
Neuro-grossly non-focal
Psych-calm, cooperative
TIA -presentation with dysarthria, word finding difficulty. Neurologic symptoms resolved. MRI/MRA negative. Atorvastatin started, Pravachol discontinued. LDL 125.
Neurology recommends 21 days of dual antiplatelet therapy then discontinue Plavix and continue aspirin.
I sent a [place] text to cardiology service to arrange for outpatient event monitor. She follows up with Dr. Blakely.
ANNABELLE -suspect due to volume depletion. Resolved with IV fluids
Coronary Artery Disease s/p Stent--Continue aspirin
Asthma-not in acute exacerbation-Continue Wixela and Singulair
Essential Hypertension-Continue Norvasc, irbesartan. Decrease coreg due to bradycardia. Discussed with patient.
Chronic heart failure preserved EF - stable.
Hypothyroidism-Continue levothyroxine
GERD-Continue Prevacid and Pepcid
DVT prophylaxis�SCDs
DNR
Dispo -anticipate discharge this afternoon after echo and EEG completed. Encouraged outpatient follow-up with PCP, cardiology, neurology.
35 minutes spent in discharge process.
Anticipated Discharge: Today
Subjective/Interval History
-
Date of Service: January 19, 2024
Patient seen and examined. Currently no complaints. Eating breakfast.
Objective Data
-
Vital Signs:
Vital Signs
Temp Pulse Resp BP Pulse Ox
98.0 F 60 16 129/58 100
01/19/24 03:08 01/19/24 07:56 01/19/24 07:56 01/19/24 03:08 01/19/24 07:56
I&O
01/18/24 01/19/24 01/20/24
06:59 06:59 06:59
Intake Total 1320 / 1320
Balance 1320 / 1320
Review of Systems
-
History Source: Patient
All other systems: Reviewed and negative
[2024-01-19 08:52] VITALS: BMI 28.6
[2024-01-19] MEDS: FARXIGA 10 MG PO (08:53)
[2024-01-19] MEDS: COREG 6.25 MG PO (08:53)
[2024-01-19] MEDS: PLAVIX 75 MG PO (08:53)
[2024-01-19] MEDS: LOW STRENGTH ASPIRIN 81 MG PO (08:54)
[2024-01-19] MEDS: FLUSH (NSS) 1 FLUSH IV (08:54)
[2024-01-19] MEDS: AVAPRO 300 MG PO (08:54)
[2024-01-19] MEDS: PROTONIX 40 MG PO (08:54)
[2024-01-19 09:05] LABS: Glycohemoglobin (HgbA1c) 5.6 % (4.0-5.6)
[2024-01-19 11:26] VITALS: BP 159/67
--- NOTE | 2024-01-19 16:21 | EEG.RPT ---
Electroencephalogram Report
Recording
Date of EE01/19/24
Type of EEG: Routine
Length of EEG recordin minutes
Done with Video Recording: Yes
Patient Status: Inpatient
Recording Conditions: Awake and Drowsy
Hyperventilation Performed: No
Photic Stimulation Performed: Yes
Report
GREATER THAN 1 HOUR EEG REPORT
EEG INTERPRETATION:
Unremarkable EEG for age
CLINICAL CORRELATION:
A normal EEG does not rule out a diagnosis of epilepsy.� If clinical suspicion for seizure persists, a prolonged recording may be warranted.
Clinical correlation is advised.
METHODS:
A 21 channel digitized electroencephalogram (EEG) was performed in the Clinical Neurophysiology Laboratory. The 10/20 international system of electrode placement was used with ECG and lateral/vertical eye movements recorded. Persyst quantitative EEG
analysis was performed.
ELECTROENCEPHALOGRAPHER IMPRESSION(S):
Quality of study
Good
Background
Unremarkable, well maintained, medium amplitude alpha-frequency and unremarkable anterior-posterior voltage gradient
With eye opening the background activity changed to a low voltage mixture of frequencies.
Sleep
Drowsiness present
Photic Stimulation
Did not activate the record
ECG
Normal sinus rhythm
--- NOTE | 2024-01-19 16:31 | PTCARENOTE ---
Pt AAO x3, MARQUEZ well, ambulatory in room/to BR; no c/o weakness/dizziness. NIHSS 0. VSS. Telemetry:NSR/sinus eddie. On room air- pulseox 98%, no c/o SOB. Abd large, soft, renata PO well. Voidingin BR without difficulty. Pt currently off unit for
EEG. Will continue to monitor.
[2024-01-19 16:48] VITALS: BP 136/60
--- NOTE | 2024-01-19 17:28 | W.DS.TRANS ---
DC Summary - Wood Fence Installer
-
Discharge Instructions:
Discharge Diagnosis/Procedures Transient ischemic attack
Diet Low Cholesterol,Low Fat
Activity As tolerated
Driving Restrictions As prior to admission
Bathing Restrictions None
Others Tests A court monitor has been ordered for you. It
will be mailed to your home.
Instructions:
Stand-Alone Forms:
Changes to Home Medications: Yes
Discharge Medications:
DC Medications w/original date entered in [facility]
Bifidobacterium infantis 4 mg capsule (Align) 4 mg PO HS Supplement 06/03/22
amlodipine 5 mg tablet (Norvasc) 5 mg PO HS Blood pressure 06/03/22
aspirin 81 mg tablet,delayed release 81 mg PO DAILY Blood clot prevention/tx 06/03/22
famotidine 40 mg tablet 40 mg PO HS Gastrointestinal issue 06/03/22
levothyroxine 25 mcg tablet (Levoxyl) 25 mcg PO DAILY Thyroid 06/03/22
montelukast 10 mg tablet (Singulair) 10 mg PO HS Lung/breathing issues 06/03/22
fluticasone 500 mcg-salmeterol 50 mcg/dose blistr powdr for inhalation (Wixela Inhub) 1 inh inhalation R BID Lung/breathing issues 07/31/22
lansoprazole 30 mg capsule,delayed release (Prevacid) 30 mg PO BID Gastrointestinal issue 07/31/22
Medical Marijuana 10 drp PO HSPRN PRN sleep 11/12/22
Alpha Betic 1 tab PO DAILY Supplement 03/24/23
cetirizine 10 mg tablet (Zyrtec) 10 mg PO HS Allergies 03/24/23
coenzyme Q10 100 mg capsule (CoQ-10) 100 mg PO BID Supplement 03/24/23
denosumab 60 mg/mL subcutaneous syringe (Prolia) 60 mg SC [id number] OSTEOPOROSIS 03/24/23
furosemide 20 mg tablet 10 mg PO DAILY Fluid Retention/Swelling 03/24/23
irbesartan 300 mg tablet 300 mg PO DAILY Blood Pressure 03/24/23
acetaminophen 325 mg tablet 650 mg (2 x 325 mg) PO Q4HPRN PRN temp >100.4 F and/or mild pain #0 tabs 03/26/23
dapagliflozin propanediol 10 mg tablet (Farxiga) 10 mg PO DAILY 01/17/24
magnesium glycinate 100 mg (as glycinate) tablet 500 mg PO DAILY 01/17/24
atorvastatin 40 mg tablet 40 mg PO QPM #30 tabs 01/19/24
carvedilol 6.25 mg tablet 6.25 mg PO BID #60 tabs 01/19/24
clopidogrel 75 mg tablet 75 mg PO DAILY #19 tabs 01/19/24
Home Medication Changes
Stop Pravastatin.
Reduce carvedilol to 6.25mg BID.
Pending Results: No
[2024-01-19] MEDS: LOVENOX SC (18:15)
[2024-01-19] MEDS: LIPITOR 40 MG PO (18:17)
== END 2024-01-19 18:50 | disposition home or self-care (01) ==
LOC: 4 EAST ACU 21:08
PROVIDERS: Registered Nurse; ADMITTING PHYSICIAN Internal Medicine; ATTENDING PHYSICIAN Hospitalist; CONSULT PHYSICIAN Psychiatry & Neurology Neurology; EMERGENCY PHYSICIAN Emergency Medicine; FAMILY PHYSICIAN Family Medicine
DX: G45.9 Transient cerebral ischemic attack, unspecified (principal); R47.81 Slurred speech; I25.10 Atherosclerotic heart disease of native coronary artery without angina pectoris; E78.00 Pure hypercholesterolemia, unspecified; E03.9 Hypothyroidism, unspecified; J45.909 Unspecified asthma, uncomplicated; I50.9 Heart failure, unspecified; I13.0 Hypertensive heart and chronic kidney disease with heart failure and stage 1 through stage 4 chronic kidney disease, or unspecified chronic kidney disease; J90 Pleural effusion, not elsewhere classified; N18.9 Chronic kidney disease, unspecified; N17.9 Acute kidney failure, unspecified; K21.9 Gastro-esophageal reflux disease without esophagitis; I08.3 Combined rheumatic disorders of mitral, aortic and tricuspid valves; R47.01 Aphasia; R47.1 Dysarthria and anarthria; Z66 Do not resuscitate; Z87.891 Personal history of nicotine dependence; Z90.2 Acquired absence of lung [part of]; Z91.041 Radiographic dye allergy status; Z91.048 Other nonmedicinal substance allergy status; Z79.890 Hormone replacement therapy; Z79.51 Long term (current) use of inhaled steroids; Z79.02 Long term (current) use of antithrombotics/antiplatelets; Z95.5 Presence of coronary angioplasty implant and graft; Z79.82 Long term (current) use of aspirin
CPT/HCPCS: 70450; 70544; 70548; 70551; 80048; 80053; 80061; 82962; 83036; 84484; 85025; 85027; 85610; 85730; 92610; 93005; 93306; 94640; 95816; 96360; 97162; 97166; 99285; A9585; G0378

== ENCOUNTER → 2024-02-09 08:11 | Outpatient (REF) | payer OTHER, SELFPAY | LOC: RCS 08:11 | PROVIDERS: ATTENDING PHYSICIAN Internal Medicine Cardiovascular Disease; FAMILY PHYSICIAN Nurse Practitioner Adult Health | DX: G45.9 Transient cerebral ischemic attack, unspecified (principal) | CPT/HCPCS: 93225; 93226 ==

== ENCOUNTER → 2024-02-12 12:38 | Outpatient (REF) | payer OTHER, SELFPAY ==
[2024-02-12 16:36] LABS: % Basophils 0.6 % (0-2); % Immature Granulocytes 0.4 % (0-0.5); % Lymphocytes 18.8 % (20.5-51.1); % Neutrophils 66.2 % (42.2-75.2); Absolute Eosinophils 0.5 10^3/uL (0-0.7); Absolute Lymphocytes 1.3 10^3/uL (1.2-3.4); Absolute Monocytes 0.5 10^3/uL (0.1-0.6); Absolute Neutrophils 4.7 10^3/uL (1.4-6.5); Hematocrit 41.5 % (37.0-47.0); Hemoglobin 13.8 g/dL (12.0-16.0); Iron 88 ug/dl (37-170); Mean Corp Hgb Conc. 33.3 g/dL (33.0-37.0); Mean Corpuscular Hgb 29.1 pg (27.0-31.0); Mean Corpuscular Volume 87.4 fL (81.0-99.0); Nucleated Red Blood Cells % 0 %; Platelet Count 246 10^3/uL (130-400); Red Blood Cell Count 4.75 10^6/uL (4.20-5.40); White Blood Cell Count 7.1 10^3/uL (4.8-10.8)
[2024-02-12 16:45] LABS: Percent Saturation 31 % (20-50); Total Iron Binding Capacity 280 ug/dl (265-497)
== END ==
LOC: HWRAD 12:38
PROVIDERS: ATTENDING PHYSICIAN Nurse Practitioner Family; FAMILY PHYSICIAN Nurse Practitioner Adult Health; REFERRING PHYSICIAN Internal Medicine Hematology & Oncology
DX: R91.8 Other nonspecific abnormal finding of lung field (principal); D50.0 Iron deficiency anemia secondary to blood loss (chronic)
CPT/HCPCS: 36415; 71250; 83540; 83550; 85025

== ENCOUNTER → 2024-02-16 09:02 | Outpatient (REF) | payer OTHER, SELFPAY ==
[2024-02-16 12:43] LABS: Albumin 4.1 g/dl (3.5-5.0); Blood Urea Nitrogen 19 mg/dl (7-17); Calcium 10.4 mg/dl (8.4-10.2); Carbon Dioxide 27 mmol/L (22-30); Chloride 104 mmol/L (98-107); Glucose 93 mg/dl (70-99); Phosphorus 3.5 mg/dl (2.5-4.5); Potassium 4.1 mmol/L (3.5-5.1); Sodium 138 mmol/L (135-145); eGFR 56.25
== END ==
LOC: HWLAB 09:02
PROVIDERS: ATTENDING PHYSICIAN Internal Medicine Cardiovascular Disease; FAMILY PHYSICIAN Nurse Practitioner Adult Health
DX: I51.7 Cardiomegaly (principal); I50.32 Chronic diastolic (congestive) heart failure; I07.1 Rheumatic tricuspid insufficiency
CPT/HCPCS: 36415; 80069

== ENCOUNTER → 2024-02-23 08:35 | Outpatient (REF) | payer OTHER, SELFPAY ==
[2024-02-23 10:34] LABS: Albumin 3.9 g/dl (3.5-5.0); Blood Urea Nitrogen 18 mg/dl (7-17); Calcium 10.3 mg/dl (8.4-10.2); Carbon Dioxide 28 mmol/L (22-30); Chloride 105 mmol/L (98-107); Glucose 91 mg/dl (70-99); Phosphorus 3.8 mg/dl (2.5-4.5); Potassium 4.4 mmol/L (3.5-5.1); Sodium 144 mmol/L (135-145); eGFR 56.25
== END ==
LOC: HWLAB 08:35
PROVIDERS: ATTENDING PHYSICIAN Internal Medicine Cardiovascular Disease; FAMILY PHYSICIAN Nurse Practitioner Adult Health
DX: I51.7 Cardiomegaly (principal); I50.32 Chronic diastolic (congestive) heart failure; I07.1 Rheumatic tricuspid insufficiency
CPT/HCPCS: 36415; 80069

== ENCOUNTER 2024-02-26 10:45 | Outpatient (RCR) | payer OTHER, SELFPAY | END 2024-02-27 09:01 | disposition home or self-care (01) | LOC: PURB 10:45 | PROVIDERS: ATTENDING PHYSICIAN Internal Medicine; FAMILY PHYSICIAN Nurse Practitioner Adult Health | DX: J45.30 Mild persistent asthma, uncomplicated (principal); J47.9 Bronchiectasis, uncomplicated; Z87.891 Personal history of nicotine dependence; J98.4 Other disorders of lung | CPT/HCPCS: G0239 ==

== ENCOUNTER → 2024-03-02 07:48 | Outpatient (REF) | payer OTHER, SELFPAY ==
[2024-03-02 09:49] LABS: Blood Urea Nitrogen 19 mg/dl (7-17); Calcium 10.4 mg/dl (8.4-10.2); Carbon Dioxide 29 mmol/L (22-30); Chloride 105 mmol/L (98-107); Glucose 93 mg/dl (70-99); Phosphorus 3.6 mg/dl (2.5-4.5); Potassium 4.4 mmol/L (3.5-5.1); Sodium 142 mmol/L (135-145); eGFR > 60.00
== END ==
LOC: HWLAB 07:48
PROVIDERS: ATTENDING PHYSICIAN Internal Medicine Cardiovascular Disease; FAMILY PHYSICIAN Nurse Practitioner Adult Health
DX: I51.7 Cardiomegaly (principal); I50.32 Chronic diastolic (congestive) heart failure; I07.1 Rheumatic tricuspid insufficiency
CPT/HCPCS: 36415; 80069

== ENCOUNTER → 2024-03-12 08:15 | Outpatient (REF) | payer OTHER, SELFPAY | LOC: CLAB 08:15 | PROVIDERS: ATTENDING PHYSICIAN Surgery | DX: R22.2 Localized swelling, mass and lump, trunk (principal) | CPT/HCPCS: 88304 ==

== ENCOUNTER 2024-03-23 09:30 | Outpatient (RCR) | payer OTHER, SELFPAY | END 2024-03-24 09:29 | disposition home or self-care (01) | LOC: PURB 09:30 | PROVIDERS: ATTENDING PHYSICIAN Internal Medicine; FAMILY PHYSICIAN Nurse Practitioner Adult Health | DX: J98.4 Other disorders of lung (principal); J45.30 Mild persistent asthma, uncomplicated | CPT/HCPCS: G0239 ==

== ENCOUNTER → 2024-04-28 08:01 | Outpatient (REF) | payer OTHER, SELFPAY ==
[2024-04-28 09:57] LABS: HDL Cholesterol 80 mg/dl; LDL Cholesterol, Calculated 77 mg/dl; Total Cholesterol 187 mg/dl (50-199); Triglyceride 153 mg/dl (10-149); Very Low Density Lipoprotein 30 mg/dl (0-30)
== END ==
LOC: HWLAB 08:01
PROVIDERS: ATTENDING PHYSICIAN Internal Medicine Cardiovascular Disease; FAMILY PHYSICIAN Nurse Practitioner Adult Health
DX: G45.9 Transient cerebral ischemic attack, unspecified (principal); E78.5 Hyperlipidemia, unspecified
CPT/HCPCS: 36415; 80061

== ENCOUNTER → 2024-05-05 08:52 | Outpatient (REF) | payer OTHER, SELFPAY | LOC: PAVMRI 08:52 | PROVIDERS: ATTENDING PHYSICIAN Nurse Practitioner Adult Health; FAMILY PHYSICIAN Nurse Practitioner Adult Health | DX: G45.9 Transient cerebral ischemic attack, unspecified (principal) | CPT/HCPCS: 70551 ==

== ENCOUNTER → 2024-05-31 07:03 | Outpatient (REF) | payer OTHER, SELFPAY ==
[2024-05-31 08:30] LABS: % Basophils 0.9 % (0-2); % Eosinophils 9.2 % (0-6); % Immature Granulocytes 0.3 % (0-0.5); % Lymphocytes 21.1 % (20.5-51.1); % Monocytes 8.2 % (1.7-9.3); % Neutrophils 60.3 % (42.2-75.2); Absolute Basophils 0.1 10^3/uL (0-0.2); Absolute Eosinophils 0.5 10^3/uL (0-0.7); Absolute Lymphocytes 1.2 10^3/uL (1.2-3.4); Absolute Monocytes 0.5 10^3/uL (0.1-0.6); Absolute Neutrophils 3.5 10^3/uL (1.4-6.5); Hematocrit 47.3 % (37.0-47.0); Hemoglobin 15.1 g/dL (12.0-16.0); Mean Corp Hgb Conc. 31.9 g/dL (33.0-37.0); Mean Corpuscular Hgb 30.3 pg (27.0-31.0); Mean Platelet Volume 10.2 fL (7.4-10.4); Nucleated Red Blood Cells % 0 %; Platelet Count 217 10^3/uL (130-400); Red Blood Cell Count 4.98 10^6/uL (4.20-5.40); Red Cell Dist. Width 13.4 % (11.5-14.5); White Blood Cell Count 5.7 10^3/uL (4.8-10.8)
[2024-05-31 09:08] LABS: Iron 100 ug/dl (37-170)
[2024-05-31 09:19] LABS: Percent Saturation 30 % (20-50); Total Iron Binding Capacity 326 ug/dl (265-497)
[2024-05-31 09:44] LABS: Ferritin 44.7 ng/ml (11.1-264.0)
== END ==
LOC: HWLAB 07:03
PROVIDERS: ATTENDING PHYSICIAN Nurse Practitioner Adult Health; FAMILY PHYSICIAN Nurse Practitioner Adult Health
DX: D50.0 Iron deficiency anemia secondary to blood loss (chronic) (principal)
CPT/HCPCS: 36415; 82728; 83540; 83550; 85025

== ENCOUNTER → 2024-09-09 14:54 | Outpatient (REF) | payer OTHER, SELFPAY ==
[2024-09-09 16:31] LABS: % Basophils 0.6 % (0-2); % Eosinophils 5.4 % (0-6); % Immature Granulocytes 0.6 % (0-0.5); % Lymphocytes 21.9 % (20.5-51.1); % Monocytes 8.5 % (1.7-9.3); Absolute Eosinophils 0.4 10^3/uL (0-0.7); Absolute Lymphocytes 1.5 10^3/uL (1.2-3.4); Absolute Monocytes 0.6 10^3/uL (0.1-0.6); Absolute Neutrophils 4.2 10^3/uL (1.4-6.5); Hematocrit 43.4 % (37.0-47.0); Hemoglobin 13.9 g/dL (12.0-16.0); Mean Corpuscular Hgb 30.8 pg (27.0-31.0); Mean Platelet Volume 10.8 fL (7.4-10.4); Nucleated Red Blood Cells % 0 %; Platelet Count 221 10^3/uL (130-400); Red Blood Cell Count 4.52 10^6/uL (4.20-5.40); Red Cell Dist. Width 14.3 % (11.5-14.5); White Blood Cell Count 6.7 10^3/uL (4.8-10.8)
[2024-09-09 16:44] LABS: Iron 90 ug/dl (37-170)
[2024-09-09 16:53] LABS: Percent Saturation 29 % (20-50); Total Iron Binding Capacity 302 ug/dl (265-497)
[2024-09-09 17:20] LABS: Ferritin 47.9 ng/ml (11.1-264.0)
== END ==
LOC: REG 14:54
PROVIDERS: ATTENDING PHYSICIAN Internal Medicine Hematology & Oncology; FAMILY PHYSICIAN Nurse Practitioner Adult Health
DX: D50.0 Iron deficiency anemia secondary to blood loss (chronic) (principal)
CPT/HCPCS: 36415; 82728; 83540; 83550; 85025

== ENCOUNTER → 2024-09-30 08:38 | Outpatient (REF) | payer OTHER, SELFPAY ==
--- NOTE | 2024-10-01 13:58 | EEG.RPT ---
Electroencephalogram Report
Recording
Date of EE09/30/24
Type of EEG: Routine
Length of EEG recordin hours 1 minute
Done with Video Recording: Yes
Patient Status: Outpatient
Recording Conditions: Awake, Drowsy and Asleep
Hyperventilation Performed: No
Photic Stimulation Performed: Yes
Report
24 HOUR AMBULATORY EEG SUMMARY
24 HOUR AMBULATORY EEG CONCLUSION(S):
Unremarkable EEG for age
CLINICAL CORRELATION:
Although normative values not been established for a person of this advanced age, this study was unremarkable.
The logs for events did not have abnormal EEG correlates.
An unremarkable EEG may not rule out a diagnosis of epilepsy. If concerns remain, then a prolonged study may be of assistance.
Clinical correlation is advised.
METHODS:
A 21 channel digitized electroencephalogram (EEG) was initiated in the Clinical Neurophysiology Laboratory. The patient wore the device outside of the laboratory and returned after 24 hours for electrode and recorder removal. The 10/20
international system of electrode placement was used with bipolar electrode montage recorded. ECG was monitored. Persyst quantitative EEG system was performed.
IMPRESSION(S):
Quality
Good
Background
Maximal wakefulness: alpha
There was a normal anterior-posterior voltage gradient. With eye opening the background activity changed. No significant asymmetries of background activity noted.
Sleep
Drowsiness was suggested by slowing of the background rhythms
Stage I sleep was recorded
Stage 2 sleep was recorded
Photic stimulation was without activation of the record
ECG
Unremarkable
== END ==
LOC: EEG 08:38
PROVIDERS: ATTENDING PHYSICIAN Nurse Practitioner Adult Health; FAMILY PHYSICIAN Nurse Practitioner Adult Health
DX: R47.89 Other speech disturbances (principal)
CPT/HCPCS: 95708

== ENCOUNTER → 2025-01-25 09:01 | Outpatient (REF) | payer OTHER, SELFPAY | LOC: HWRCS 09:01 | PROVIDERS: ATTENDING PHYSICIAN Internal Medicine Cardiovascular Disease; FAMILY PHYSICIAN Nurse Practitioner Adult Health | DX: I34.0 Nonrheumatic mitral (valve) insufficiency (principal); I27.20 Pulmonary hypertension, unspecified | CPT/HCPCS: 93306 ==

== ENCOUNTER → 2025-02-09 07:41 | Outpatient (REF) | payer OTHER, SELFPAY | LOC: HWRAD 07:41 | PROVIDERS: ATTENDING PHYSICIAN Nurse Practitioner Adult Health | DX: M85.89 Other specified disorders of bone density and structure, multiple sites (principal) | CPT/HCPCS: 77080 ==

== ENCOUNTER → 2025-03-01 06:11 | Outpatient (REF) | payer OTHER, SELFPAY ==
[2025-03-01 09:37] LABS: Albumin 4.2 g/dl (3.5-5.0); Blood Urea Nitrogen 25 mg/dl (7-17); Calcium 10.2 mg/dl (8.4-10.2); Carbon Dioxide 29 mmol/L (22-30); Chloride 106 mmol/L (98-107); Glucose 93 mg/dl (70-99); Potassium 4.6 mmol/L (3.5-5.1); Sodium 140 mmol/L (135-145); eGFR 37.33
== END ==
LOC: HWLAB 06:11
PROVIDERS: ATTENDING PHYSICIAN Internal Medicine Cardiovascular Disease; FAMILY PHYSICIAN Nurse Practitioner Adult Health; REFERRING PHYSICIAN Internal Medicine Rheumatology
DX: I50.32 Chronic diastolic (congestive) heart failure (principal)
CPT/HCPCS: 36415; 80069

== ENCOUNTER → 2025-03-24 08:11 | Outpatient (REF) | payer OTHER, SELFPAY ==
[2025-03-24 10:48] LABS: Albumin 4.1 g/dl (3.5-5.0); Blood Urea Nitrogen 30 mg/dl (7-17); Calcium 10.0 mg/dl (8.4-10.2); Carbon Dioxide 28 mmol/L (22-30); Chloride 106 mmol/L (98-107); Glucose 87 mg/dl (70-99); HDL Cholesterol 71 mg/dl; LDL Cholesterol, Calculated 17 mg/dl; Potassium 4.7 mmol/L (3.5-5.1); Sodium 138 mmol/L (135-145); Very Low Density Lipoprotein 24 mg/dl (0-30); eGFR 40.80
== END ==
LOC: HWLAB 08:11
PROVIDERS: ATTENDING PHYSICIAN Internal Medicine Cardiovascular Disease; FAMILY PHYSICIAN Nurse Practitioner Adult Health
DX: E78.5 Hyperlipidemia, unspecified (principal); I25.10 Atherosclerotic heart disease of native coronary artery without angina pectoris; I50.32 Chronic diastolic (congestive) heart failure
CPT/HCPCS: 36415; 80061; 80069

== ENCOUNTER → 2025-04-04 06:34 | Outpatient (REF) | payer OTHER, SELFPAY ==
[2025-04-04 09:31] LABS: Urine Character Clear (Clear)
[2025-04-04 10:09] LABS: ALT (SGPT) 24 U/L (0-35); AST (SGOT) 23 U/L (14-36); Albumin 3.8 g/dl (3.5-5.0); Alkaline Phosphatase 73 U/L (38-126); Blood Urea Nitrogen 24 mg/dl (7-17); Calcium 9.8 mg/dl (8.4-10.2); Carbon Dioxide 27 mmol/L (22-30); Chloride 109 mmol/L (98-107); Glucose 94 mg/dl (70-99); Potassium 4.3 mmol/L (3.5-5.1); Sodium 139 mmol/L (135-145); Total Protein 5.9 g/dl (6.3-8.2); eGFR 40.80
[2025-04-04 10:17] LABS: C-Reactive Protein 5.10 mg/L (0.0-10.00)
[2025-04-04 10:48] LABS: Cortisol, Random 14.5 ug/dl
[2025-04-04 11:47] LABS: Urine Red Blood Cell 0-2 /HPF (0-2)
[2025-04-05 21:12] LABS: CTx 586 pg/mL
[2025-04-06 01:56] LABS: ANA, IgG Reflex to HEp-2 None Detected (None Detected)
[2025-04-06 15:53] LABS: tTG IgA Antibody 3.6 EU/ml (0-19); tTG IgG Antibody 8.0 EU/ml (0-19)
== END ==
LOC: HWRAD 06:34
PROVIDERS: ATTENDING PHYSICIAN Physician Assistant; FAMILY PHYSICIAN Nurse Practitioner Adult Health
DX: E21.3 Hyperparathyroidism, unspecified (principal); K90.0 Celiac disease; M15.9 Polyosteoarthritis, unspecified; M32.9 Systemic lupus erythematosus, unspecified; M81.0 Age-related osteoporosis without current pathological fracture; R26.89 Other abnormalities of gait and mobility; M40.209 Unspecified kyphosis, site unspecified
CPT/HCPCS: 36415; 72070; 80053; 81003; 81015; 82523; 82533; 82570; 82784; 83516; 83970; 84156; 85652; 86038; 86140; 86160; 86231

== ENCOUNTER → 2025-04-12 06:39 | Outpatient (REF) | payer OTHER, SELFPAY ==
[2025-04-12 10:26] LABS: 24 Hour Urine Total Volume 1600 ml
== END ==
LOC: HWLAB 06:39
PROVIDERS: ATTENDING PHYSICIAN Physician Assistant; FAMILY PHYSICIAN Nurse Practitioner Adult Health; REFERRING PHYSICIAN Internal Medicine Rheumatology
DX: M81.0 Age-related osteoporosis without current pathological fracture (principal)
CPT/HCPCS: 81050; 82340